=== PATIENT | female | born 1940 | race Caucasian/White ===

== ENCOUNTER → 2017-01-07 | Outpatient (CLI) | payer MEDICARE, BC | LOC: LGSMG 13:10 | DX: R30.0 Dysuria (principal) ==

== ENCOUNTER → 2017-02-06 | Outpatient (CLI) | payer MEDICARE, BC | LOC: LGSMG 16:58 | DX: R30.0 Dysuria (principal) ==

== ENCOUNTER → 2017-04-14 | Outpatient (CLI) | payer MEDICARE, BC | END | disposition disaster alternative care site (69) | LOC: GBCOE 12:13 | DX: Z12.31 Encounter for screening mammogram for malignant neoplasm of breast (principal) | CPT/HCPCS: G0202 ==

== ENCOUNTER → 2017-05-19 | Outpatient (CLI) | payer MEDICARE, BC ==
--- NOTE | ~2017-05-19 | ESTC ---
Cardiac Perfusion Imaging Demographics Patient Name HAFSA Sweet Gender Female Patient Number [id number] Race Visit Number [id number] Ethnicity [employer] ID Room Number Accession Number [id number] Height 65 inches Date of 1940 Weight 170 pounds Interpreting JALEN Kyle Date of study 05/19/2017 Physician Otis Henry MD Supervising MD/MLP Otis Henry NM Technologist Anahy Brambila MD Ordering Physician Otis Henry Stress MD artificial insemination technician Stress ECG Reading Otis Henry Nurse Justyn Woodard RN Physician MD Carmencita Peters RN Medications Reviewed with Patient prior to Procedure. Procedure Admit Source:Other. Procedure Type: Nuclear Stress Test:Pharmacological, Lexiscan, Cardiolite Stress Test Procedure Start time: 05/19/2017 09:10 Indications: Dyspnea, Family history of coronary artery disease and Dyslipidemia. Risk Factors The patient risk factors include:Current/Recent(w/in 1 year) tobacco use, treated hypercholesterolemia, treated hypertension, family history of premature CAD and dyslipidemia. Conclusions Impression ECG portion of lexiscan stress test is clinically negative for ischemia by diagnostic criteria. Myocardial perfusion imaging is essentially normal. There is decreased perfusion in the anterior wall at rest but improves at stress, this is likely secondary to artifact. Overall left ventricular systolic function was normal without regional wall motion abnormalities. Calculated LVEF is 78% and TID ratio is 1.01. Stress Protocols Resting ECG NSR Pre-stress physical exam: Patient assessed by Dr. Holguin prior to testing. Peak HR:96 bpm HR/BP product:51326 Peak BP:157/80 mmHg Predicted HR: 141 bpm % of predicted HR: 68 ECG Findings No ECG changes suggestive of ischemia. Arrhythmias No rhythm abnormality. Symptoms No symptoms with Lexiscan infusion. Stress Interpretation Appropriate hemodynamic response to Lexiscan. No significant ST-T wave changes with Lexiscan. ECG portion is negative for ischemia by diagnostic criteria. Imaging Results Applied corrections - Motion correction applied High risk findings Summed scores - Summed stress score: 0 - Summed rest score: 0 - Summed difference score: 0 Stress ejection Ejection fraction:78 % EDV :72 ml ESV :16 ml Stroke volume :56 ml LV mass :101 gr Imaging Protocols Rest Stress Isotope:Tc99m Sestamibi IV Isotope: Tc99m Sestamibi IV Isotope dose:11.7 mCi Isotope dose:35.9 mCi Date:05/19/2017 07:34 Date:05/19/2017 09:30 Technique: SPECT Technique: Gated Supine SPECT Supine Scan Time:45-60 minutes post Scan Time:45-60 minutes post injection injection Procedure Medications - Regadenoson (Lexiscan) 0.4 mg IV over 10-15 sec. I.V. 0.4 mg. Medications administered per verbal order and read back to physician prior to administration. Medical History Admission Data Admission date: 05/19/2017 Admission Time: 07:16 Hospital Status: Outpatient. Signatures dtt: MARIA E MUNGUIA dtd: 05/19/17 0910 Physician Self Edit
== END | disposition disaster alternative care site (69) ==
LOC: GRAD 07:15
DX: R06.09 Other forms of dyspnea (principal); F17.200 Nicotine dependence, unspecified, uncomplicated; R94.39 Abnormal result of other cardiovascular function study; Z86.79 Personal history of other diseases of the circulatory system; Z82.49 Family history of ischemic heart disease and other diseases of the circulatory system; Z83.49 Family history of other endocrine, nutritional and metabolic diseases
CPT/HCPCS: A9500; J2785